=== PATIENT | male | born 1950 | race Caucasian/White ===

== ENCOUNTER 2016-11-22 10:01 | Outpatient (CLI) | payer MEDICARE, OTHER | END 2016-11-22 10:02 | disposition home or self-care (01) | DX: G47.10 Hypersomnia, unspecified (principal); E66.9 Obesity, unspecified; Z68.43 Body mass index [BMI] 50.0-59.9, adult; R09.89 Other specified symptoms and signs involving the circulatory and respiratory systems | CPT/HCPCS: 99203; G0463 ==

== ENCOUNTER 2016-12-11 19:35 | Outpatient (CLI) | payer MEDICARE, OTHER | END 2016-12-11 19:36 | disposition home or self-care (01) | DX: G47.33 Obstructive sleep apnea (adult) (pediatric) (principal); G47.61 Periodic limb movement disorder; Z68.43 Body mass index [BMI] 50.0-59.9, adult ==

== ENCOUNTER 2016-12-22 09:04 | Outpatient (CLI) | payer MEDICARE, OTHER | END 2016-12-22 09:05 | disposition home or self-care (01) | DX: G47.33 Obstructive sleep apnea (adult) (pediatric) (principal) | CPT/HCPCS: 99214; G0463 ==

== ENCOUNTER 2017-02-01 14:19 | Outpatient (CLI) | payer MEDICARE, OTHER | END 2017-02-01 14:20 | disposition home or self-care (01) | LOC: SC 14:19 | PROVIDERS: ATTEND Nurse Practitioner Family | DX: G47.33 Obstructive sleep apnea (adult) (pediatric) (principal) | CPT/HCPCS: 99214; G0463; 99212 ==

== ENCOUNTER 2017-05-04 10:13 | Outpatient (CLI) | payer MEDICARE, OTHER | END 2017-05-04 10:14 | disposition home or self-care (01) | LOC: SC 10:13 | PROVIDERS: ATTEND Nurse Practitioner Family | DX: G47.33 Obstructive sleep apnea (adult) (pediatric) (principal) | CPT/HCPCS: 99214; G0463; 99212 ==

== ENCOUNTER 2019-02-16 00:17 | Outpatient (CLI) | payer MEDICARE, OTHER | END 2019-02-16 00:18 | disposition critical access hospital (66) | LOC: EMS 00:17 | PROVIDERS: ATTEND Surgery | DX: K92.1 Melena (principal); R10.819 Abdominal tenderness, unspecified site | CPT/HCPCS: A0425; A0429 ==

== ENCOUNTER 2019-02-16 00:32 | Emergency (ER) | payer MEDICARE, OTHER ==
[2019-02-16 01:00] LABS: BASOPHILS % (AUTO) 0.6 %; EOSINOPHILS % (AUTO) 0.7 %; HGB - HEMOGLOBIN 12.7 g/dL (14.0-18.0); LYMPHOCYTES % (AUTO) 5.5 %; MEAN CORPUSCULAR HEMOGLOBIN 34.5 pg (27.0-31.0); MEAN CORPUSCULAR HGB CONC 35.7 g/dL (32.0-36.0); MEAN CORPUSCULAR VOLUME 96.7 fL (80.0-94.0); MONOCYTES % (AUTO) 4.6 %; NEUTROPHILS % (AUTO) 77.7 %; PLT - PLATELET COUNT 155 10^3/uL (130-450); RED BLOOD COUNT 3.68 10^6/uL (4.70-6.10); RED CELL DISTRIBUTION WIDTH 16.6 % (12.0-15.0); WHITE BLOOD COUNT 23.5 x10^3/uL (4.8-10.8)
[2019-02-16 01:03] LABS: ABNORMAL LYMPHS % (MANUAL) 0 %
[2019-02-16 01:28] LABS: BAND NEUTROPHILS % (MANUAL) 10 %; DIFFERENTIAL COMMENT MANUAL DIFFERENTIAL; EOSINOPHILS # (MANUAL) 0.5 10^3/uL (0-0.7); LYMPHOCYTES # (MANUAL) 0.7 10^3/uL (1.5-3.5); LYMPHOCYTES % (MANUAL) 3 %; MONOCYTES # (MANUAL) 0.7 10^3/uL (0.0-1.0); NEUTROPHILS # (MANUAL) 21.6 10^3/uL (1.5-6.6); NEUTROPHILS % (MANUAL) 82 %; PLATELET ESTIMATE, MANUAL NORMAL (130-450,000) (NORMAL); RBC MORPHOLOGY (MULTIPLE) NORMAL APPEARANCE (NORMAL)
[2019-02-16 01:29] LABS: ALBUMIN/GLOBULIN RATIO 0.5 (1.0-2.2)
[2019-02-16 01:30] LABS: ALBUMIN 2.3 g/dL (3.2-5.5); BILIRUBIN,TOTAL 15.3 mg/dL (0.2-1.0); CALCIUM 9.3 mg/dL (8.5-10.3); CREATININE 3.4 mg/dL (0.6-1.2); TOTAL PROTEIN 6.9 g/dL (6.7-8.2)
[2019-02-16] MEDS ORDERED: SODIUM CHLORIDE 0.9% 500 ML IV STA (02:21)
--- NOTE | 2019-02-16 02:21 | ED Physician Documentation ---
PD HPI GI BLEED - Stated complaint Stated Complaint: BLOOD IN STOOL - Chief complaint Chief Complaint: Abd Pain - History obtained from History obtained from: Patient - History of Present Illness Timing - onset: Today Timing - details: Abrupt onset, Intermittant Associated symptoms: BRBPR, Abdominal pain, Loss of appetite. No: Fever Improved by: Other (nothing) Worsened by: Other (no exacerbating factors) Similar symptoms before: Has not had sx before Recently seen: Not recently seen - Additional information Additional information: chief complaint is BRBPR. Patient had hard stool at noon and noted blood in toilet. He had 1-2 more such episodes in the afternoon. He has had abdominal cramping for several days and describes increasing generalized weakness over the past 2-3 days. Also has had dyspnea on exertion over past week, but since yesterday has also had dyspnea at rest. Review of Systems Constitutional: reports: Fatigue. denies: Fever, Chills, Sweats Eyes: reports: Reviewed and negative Ears: reports: Reviewed and negative Nose: reports: Reviewed and negative Throat: reports: Reviewed and negative Cardiac: reports: Reviewed and negative Respiratory: reports: Dyspnea. denies: Cough, Hemoptysis, Wheezing GI: reports: Abdominal Pain, Abdominal Swelling, Bloody / black stool. denies: Nausea, Vomiting, Constipation, Diarrhea : reports: Other ("haven't been urinating all day" (per patient)) Skin: reports: Reviewed and negative Musculoskeletal: reports: Extremity swelling Neurologic: reports: Generalized weakness. denies: Focal weakness, Numbness, Confused, Altered mental status, Headache PD PAST MEDICAL HISTORY - Past Medical History Past Medical History: Yes Cardiovascular: Hypertension, Coronary artery disease, Other Respiratory: Sleep apnea, CPAP use Neuro: None Endocrine/Autoimmune: None GI: Other : None HEENT: Chronic vision loss Musculoskeletal: None Other Past Medical History: Liver CA - Past Surgical History Past Surgical History: Yes Ortho: Hip replacement, Knee replacement Cardiovascular: Coronary stent - Present Medications Home Medications: Ambulatory Orders Medication Instructions Recorded Confirmed Aspirin [Jh Chewable Aspirin] 09/11/15 09/11/15 Atenolol [Tenormin] 09/11/15 09/11/15 Azithromycin [Zithromax] 250 mg PO DAILY #4 tablet 09/11/15 Benzonatate [Tessalon] 100 mg PO TID PRN #20 capsule 09/11/15 Furosemide 09/11/15 09/11/15 Harvoni 09/11/15 09/11/15 NIFEdipine [Procardia Xl] 60 mg PO DAILY 09/11/15 09/11/15 Telmisartan [Micardis] 80 mg PO DAILY 09/11/15 09/11/15 guaiFENesin/DEXTROMETHORPHAN 10 ml PO Q6H PRN #120 ml 09/11/15 [Robitussin Dm] - Allergies Allergies/Adverse Reactions: Allergies Allergy/AdvReac Type Severity Reaction Status Date / Time No Known Drug Allergies Allergy Verified 09/11/15 05:10 - Social History Does the pt smoke?: No Smoking Status: Never smoker Does the pt drink ETOH?: No Does the pt have substance abuse?: No - Immunizations Immunizations are current?: Yes - POLST Patient has POLST: No PD ED PE NORMAL - Vitals Vital signs reviewed: Yes - General General: Alert and oriented X 3, No acute distress, Well developed/nourished - HEENT HEENT: Other (tacky/pasty mucous membranes) - Neck Neck: No JVD - Cardiac Cardiac: RRR, No murmur - Respiratory Respiratory: No respiratory distress, Clear bilaterally - Abdomen Abdomen: Soft - Back Back: No CVA TTP - Neuro Neuro: Alert and oriented X 3, 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, No motor deficit, No sensory deficit, Normal speech Eye Opening: Spontaneous Motor: Obeys Commands Verbal: Oriented GCS Score: 15 PD ED PE EXPANDED - Eyes Eyes: Scleral icterus - Abdomen Abdomen: Distended, Tender to palpation (mild generalized tenderness without rebound or guarding) - Derm Derm: Jaundiced - Extremities Extremities: Pedal edema bilateral (brawny 3+ BLE pitting edema, hyperpigmentation bilateral pretibial surfaces) Results - Vitals Vitals: Vital Signs - 24 hr 02/16/19 02/16/19 02/16/19 00:36 00:40 02:40 Temperature 36.7 C Heart Rate 77 72 67 Respiratory 18 18 18 Rate Blood Pressure 140/94 H 140/94 H 117/86 H O2 Saturation 99 98 98 02/16/19 02/16/19 04:13 06:00 Temperature 36.7 C Heart Rate 74 66 Respiratory 15 17 Rate Blood Pressure 140/62 H 144/66 H O2 Saturation 97 99 Oxygen O2 Source Room air - Labs Labs: Laboratory Tests 02/16/19 02/16/19 02/16/19 00:56 00:56 03:10 WBC 23.5 H RBC 3.68 L Hgb 12.7 L Hct 35.6 L MCV 96.7 H MCH 34.5 H MCHC 35.7 RDW 16.6 H Plt Count 155 MPV 10.0 Neut # (Auto) Not Reportable Lymph # (Auto) Not Reportable [place] # (Auto) Not Reportable Eos # (Auto) Not Reportable Baso # (Auto) Not Reportable Absolute Nucleated RBC Not Reportable Total Counted 100 Band Neuts % (Manual) 10 Abnorm Lymph % (Manual) 0 Nucleated RBC % Not Reportable Neutrophils # (Manual) 21.6 H Lymphocytes # (Manual) 0.7 L Monocytes # (Manual) 0.7 Eosinophils # (Manual) 0.5 Basophils # (Manual) 0.0 Differential Comment MANUAL DIFFERENTIAL Platelet Estimate NORMAL (130-450,000) RBC Morph Micro Appear NORMAL APPEARANCE PT INR APTT Sodium 126 L Potassium 3.8 Chloride 94 L Carbon Dioxide 16 L Anion Gap 16.0 H BUN 111 H* Creatinine 3.4 H Estimated GFR (MDRD) 18 L Glucose 99 Lactic Acid Calcium 9.3 Total Bilirubin 15.3 H AST 97 H ALT 64 H Alkaline Phosphatase 404 H Ammonia 53.0 H B-Natriuretic Peptide Total Protein 6.9 Albumin 2.3 L Globulin 4.6 H Albumin/Globulin Ratio 0.5 L Lipase 40 Urine Color Urine Clarity Urine pH Ur Specific [place] Urine Protein Urine Glucose (UA) Urine Ketones Urine Occult Blood Urine Nitrite Urine Bilirubin Urine Urobilinogen Ur Leukocyte Esterase Urine RBC Urine WBC Ur Squamous Epith Cells Urine Bacteria Urine Casts Ur Microscopic Review Urine Culture Comments 02/16/19 02/16/19 02/16/19 03:10 03:10 06:50 WBC RBC Hgb Hct MCV MCH MCHC RDW Plt Count MPV Neut # (Auto) Lymph # (Auto) [place] # (Auto) Eos # (Auto) Baso # (Auto) Absolute Nucleated RBC Total Counted Band Neuts % (Manual) Abnorm Lymph % (Manual) Nucleated RBC % Neutrophils # (Manual) Lymphocytes # (Manual) Monocytes # (Manual) Eosinophils # (Manual) Basophils # (Manual) Differential Comment Platelet Estimate RBC Morph Micro Appear PT 18.6 H INR 1.7 H APTT 33.8 H Sodium Potassium Chloride Carbon Dioxide Anion Gap BUN Creatinine Estimated GFR (MDRD) Glucose Lactic Acid Calcium Total Bilirubin AST ALT Alkaline Phosphatase Ammonia B-Natriuretic Peptide 128 H Total Protein Albumin Globulin Albumin/Globulin Ratio Lipase Urine Color DARK YELLOW Urine Clarity CLEAR Urine pH 5.0 Ur Specific [place] 1.010 Urine Protein NEGATIVE Urine Glucose (UA) NEGATIVE Urine Ketones NEGATIVE Urine Occult Blood MODERATE H Urine Nitrite NEGATIVE Urine Bilirubin MODERATE H Urine Urobilinogen 0.2 (NORMAL) Ur Leukocyte Esterase TRACE H Urine RBC 6-10 H Urine WBC 0-3 Ur Squamous Epith Cells FEW Squamous Urine Bacteria Rare Urine Casts 3-5 Hyaline Casts Ur Microscopic Review INDICATED Urine Culture Comments INDICATED 02/16/19 07:05 WBC RBC Hgb Hct MCV MCH MCHC RDW Plt Count MPV Neut # (Auto) Lymph # (Auto) [place] # (Auto) Eos # (Auto) Baso # (Auto) Absolute Nucleated RBC Total Counted Band Neuts % (Manual) Abnorm Lymph % (Manual) Nucleated RBC % Neutrophils # (Manual) Lymphocytes # (Manual) Monocytes # (Manual) Eosinophils # (Manual) Basophils # (Manual) Differential Comment Platelet Estimate RBC Morph Micro Appear PT INR APTT Sodium Potassium Chloride Carbon Dioxide Anion Gap BUN Creatinine Estimated GFR (MDRD) Glucose Lactic Acid 1.5 Calcium Total Bilirubin AST ALT Alkaline Phosphatase Ammonia B-Natriuretic Peptide Total Protein Albumin Globulin Albumin/Globulin Ratio Lipase Urine Color Urine Clarity Urine pH Ur Specific [place] Urine Protein Urine Glucose (UA) Urine Ketones Urine Occult Blood Urine Nitrite Urine Bilirubin Urine Urobilinogen Ur Leukocyte Esterase Urine RBC Urine WBC Ur Squamous Epith Cells Urine Bacteria Urine Casts Ur Microscopic Review Urine Culture Comments - Rads (name of study) chest xray Radiology: Prelim report reviewed, See rad report PD MEDICAL DECISION MAKING - ED course Complexity details: reviewed old records (records from [facility] faxed to me and reviewed), reviewed results, re-evaluated patient, considered differential, d/w patient ED course: h/o HCV cirrhosis and hepatocellular carcinoma. he is jaundiced and icteric with bilirubin of 15. significant leukocytosis, uremia (BUN 111), creatinine 3.4. Most of these lab results are significantly worse than those noted on faxed reports from 01/10/19 (normal WBC and bilirubin low 2s at that time). No beds available at [facility] or [facility]. D/W Dr. Diallo at [facility], requests lactic acid level and UA before transfer (as patient should have antibiotics started prior to transfer if the results are s/o infection). After 6 hours in ED and 1 liter NS bolus, still no urine output and thus young catheter inserted; only 30cc return. Normal lactate and UA does not suggest infection. I then D/W Dr. Sin at [facility], accepts transfer but recommends blood cultures and rocephin for possible SBP. Prior to transfer, patient had significant improvement in UO with further IV fluids. Departure - Departure Disposition: 02 Transfer Acute Care Hosp Clinical Impression: Hepatorenal syndrome Condition: Stable
--- NOTE | 2019-02-16 03:05 | XRAY Report ---
Reason: dyspnea Procedure Date: 02/16/2019 Accession Number: [id number] / [id number] Procedure: XR - Chest 2 View X-Ray CPT Code: 94261 FULL RESULT: EXAM: CHEST RADIOGRAPHY EXAM DATE: 02/16/2019 02:48 AM. CLINICAL HISTORY: Dyspnea. COMPARISON: CHEST 2 VIEW PA/LAT 09/11/2015 5:37 AM. TECHNIQUE: 2 views. FINDINGS: Lungs/Pleura: No focal opacities evident. No pleural effusion. No pneumothorax. Normal volumes. Mediastinum: Stable postoperative changes of median sternotomy. No cardiomegaly. Other: None. IMPRESSION: No evidence of acute cardiopulmonary disease. RADIA
[2019-02-16 03:36] LABS: INR 1.7 (0.8-1.2); PT - PROTHROMBIN TIME 18.6 secs (9.9-12.6)
[2019-02-16 03:53] LABS: PARTIAL THROMBOPLASTIN TIME 33.8 secs (24.9-33.3)
[2019-02-16] MEDS ORDERED: SODIUM CHLORIDE 0.9% 1,000 ML IV STA (06:33)
[2019-02-16 07:12] LABS: GLUCOSE, URINE (UA) NEGATIVE (NEGATIVE); KETONES,URINE (UA) NEGATIVE (NEGATIVE); LEUKOCYTE ESTERASE, URINE TRACE (NEGATIVE); NITRITE,URINE NEGATIVE (NEGATIVE); OCCULT BLOOD,URINE MODERATE (NEGATIVE); PROTEIN,URINE NEGATIVE (NEGATIVE); UROBILINOGEN,URINE 0.2 (NORMAL) E.U./dL (NORMAL)
[2019-02-16 07:16] LABS: BILIRUBIN,URINE MODERATE (NEGATIVE); CLARITY,URINE CLEAR (CLEAR); ICTOTEST,URINE POSITIVE
[2019-02-16 07:23] LABS: BACTERIA,URINE Rare /HPF (None Seen); SQUAMOUS EPITHELIAL CELL,UR FEW Squamous (<= Few)
[2019-02-16 07:24] LABS: CASTS, URINE 3-5 Hyaline Casts /LPF
[2019-02-16] MEDS ORDERED: cefTRIAXone 1 GM in SODIUM CHLORIDE 0.9% MINIBAG 100 ML IV STA (08:26)
[2019-02-16 10:59] VITALS: BP 132/70
[2019-02-16] MEDS ORDERED: HYDROmorphone 1 MG/ML CARPUJECT IVP STA (11:38)
== END 2019-02-16 11:59 | disposition short-term general hospital (02) ==
LOC: EDUNIT# → ED 00:32
DX: K76.7 Hepatorenal syndrome (principal); R33.9 Retention of urine, unspecified; K74.69 Other cirrhosis of liver; Z85.05 Personal history of malignant neoplasm of liver; I78.1 Nevus, non-neoplastic; I10 Essential (primary) hypertension; I25.10 Atherosclerotic heart disease of native coronary artery without angina pectoris; Z95.5 Presence of coronary angioplasty implant and graft; Z79.82 Long term (current) use of aspirin
CPT/HCPCS: 36415; 51702; 51798; 71046; 80053; 81001; 81003; 82140; 83605; 83690; 83880; 85025; 85610; 85730; 87040; 87086; 96361; 96365; 99285

== ENCOUNTER 2019-03-13 09:34 | Outpatient (CLI) | payer MEDICARE, OTHER | END 2019-03-13 09:35 | disposition critical access hospital (66) | LOC: EMS 09:34 | PROVIDERS: ATTEND Surgery | DX: R06.00 Dyspnea, unspecified (principal) | CPT/HCPCS: A0425; A0429 ==

== ENCOUNTER 2019-03-13 09:50 | Emergency (ER) | payer MEDICARE, OTHER ==
--- NOTE | 2019-03-13 09:57 | ED Physician Documentation ---
History of Present Illness - Stated complaint Stated Complaint: SOA - History obtained from History obtained from: Patient, EMS - History of Present Illness Timing: How many days ago (several days) Pain level max: 0 Pain level now: 0 - Additonal information Additional information: states history of CHF and liver disease. Stopped his lasix recently and was supposed to restart today. He was on his way to his doctor appointment today and his sister called 911. No cough, no congestion. nothing makes this better or worse. Had SBP recently. on cipro and rifaxamin. Patient was recently admitted to [facility]. His doctor for his liver is at the [facility], Dr. Mcfadden. He has been off Lasix since his discharge from [facility]. He feels more swollen than usual. Review of Systems Ten Systems: 10 systems reviewed and negative Constitutional: denies: Fever, Chills Ears: denies: Ear pain, Drainage/discharge Nose: denies: Rhinorrhea / runny nose, Congestion Skin: denies: Rash Musculoskeletal: denies: Neck pain, Back pain Neurologic: denies: Headache PD PAST MEDICAL HISTORY - Past Medical History Cardiovascular: Hypertension, Coronary artery disease, Other Respiratory: Sleep apnea, CPAP use Neuro: None Endocrine/Autoimmune: None GI: Other : None HEENT: Chronic vision loss Musculoskeletal: None - Past Surgical History Past Surgical History: Yes Ortho: Hip replacement, Knee replacement Cardiovascular: Coronary stent - Present Medications Home Medications: Ambulatory Orders Medication Instructions Recorded Confirmed Aspirin [Jh Chewable Aspirin] 09/11/15 09/11/15 Atenolol [Tenormin] 09/11/15 09/11/15 Azithromycin [Zithromax] 250 mg PO DAILY #4 tablet 09/11/15 Benzonatate [Tessalon] 100 mg PO TID PRN #20 capsule 09/11/15 Furosemide 09/11/15 09/11/15 Harvoni 09/11/15 09/11/15 NIFEdipine [Procardia Xl] 60 mg PO DAILY 09/11/15 09/11/15 Telmisartan [Micardis] 80 mg PO DAILY 09/11/15 09/11/15 guaiFENesin/DEXTROMETHORPHAN 10 ml PO Q6H PRN #120 ml 09/11/15 [Robitussin Dm] - Allergies Allergies/Adverse Reactions: Allergies Allergy/AdvReac Type Severity Reaction Status Date / Time No Known Drug Allergies Allergy Verified 09/11/15 05:10 - Social History Does the pt smoke?: No Smoking Status: Never smoker Does the pt drink ETOH?: No Does the pt have substance abuse?: No - Immunizations Immunizations are current?: Yes - POLST Patient has POLST: No PD ED PE NORMAL - Vitals Vital signs reviewed: Yes - General General: Alert and oriented X 3, No acute distress, Well developed/nourished, Other (jaundiced) - HEENT HEENT: Moist mucous membranes, Other (scleral icterus) - Neck Neck: Supple, no meningeal sign - Cardiac Cardiac: RRR, Strong equal pulses - Respiratory Respiratory: No respiratory distress, Clear bilaterally - Abdomen Abdomen: Soft, Non tender, Other (moderate distention) - Back Back: No spinal TTP - Derm Derm: Warm and dry - Extremities Extremities: Other (3+ pitting edema) - Neuro Neuro: Alert and oriented X 3 - Psych Psych: Normal mood, Normal affect Results - Vitals Vitals: Vital Signs - 24 hr 03/13/19 03/13/19 03/13/19 09:58 10:27 12:21 Temperature 36.8 C Heart Rate 67 63 55 L Respiratory 22 18 20 Rate Blood Pressure 121/46 L 121/45 L 131/51 H O2 Saturation 100 100 99 03/13/19 03/13/19 12:39 13:01 Temperature Heart Rate 65 69 Respiratory 20 20 Rate Blood Pressure 125/41 L O2 Saturation 99 Oxygen O2 Source Room air - EKG (time done) 1004 Rate: Rate (enter#) (65) Rhythm: Atrial fibrillation [place]: Normal Intervals: Normal [place] QRS: Normal Ischemia: Normal ST segments - Labs Labs: Laboratory Tests 03/13/19 03/13/19 03/13/19 10:22 10:22 10:22 WBC 8.8 RBC 2.54 L Hgb 9.0 L Hct 25.2 L MCV 99.2 H MCH 35.4 H MCHC 35.7 RDW 16.5 H Plt Count 223 MPV 10.3 Neut # (Auto) 6.6 Lymph # (Auto) 0.6 L [place] # (Auto) 1.1 H Eos # (Auto) 0.3 Baso # (Auto) 0.0 Absolute Nucleated RBC 0.00 Nucleated RBC % 0.0 Sodium 119 L* Potassium 6.6 H* Chloride 91 L Carbon Dioxide 13 L Anion Gap 15.0 H BUN 98 H* Creatinine 5.2 H Estimated GFR (MDRD) 11 L Glucose 94 Calcium 9.2 Total Bilirubin 19.0 H AST 112 H ALT 37 Alkaline Phosphatase 167 H B-Natriuretic Peptide 203 H Total Protein 7.0 Albumin 3.7 Globulin 3.3 Albumin/Globulin Ratio 1.1 Lipase 374 H Urine Color Urine Clarity Urine pH Ur Specific [place] Urine Protein Urine Glucose (UA) Urine Ketones Urine Occult Blood Urine Nitrite Urine Bilirubin Urine Urobilinogen Ur Leukocyte Esterase Urine RBC Urine WBC Ur Squamous Epith Cells Urine Crystals Urine Bacteria Urine Casts Ur Microscopic Review Urine Culture Comments 03/13/19 11:18 WBC RBC Hgb Hct MCV MCH MCHC RDW Plt Count MPV Neut # (Auto) Lymph # (Auto) [place] # (Auto) Eos # (Auto) Baso # (Auto) Absolute Nucleated RBC Nucleated RBC % Sodium Potassium Chloride Carbon Dioxide Anion Gap BUN Creatinine Estimated GFR (MDRD) Glucose Calcium Total Bilirubin AST ALT Alkaline Phosphatase B-Natriuretic Peptide Total Protein Albumin Globulin Albumin/Globulin Ratio Lipase Urine Color YELLOW Urine Clarity HAZY Urine pH 5.0 Ur Specific [place] 1.020 Urine Protein 100 H Urine Glucose (UA) NEGATIVE Urine Ketones TRACE Urine Occult Blood SMALL H Urine Nitrite NEGATIVE Urine Bilirubin MODERATE H Urine Urobilinogen 0.2 (NORMAL) Ur Leukocyte Esterase TRACE H Urine RBC 0-5 Urine WBC 11-25 H Ur Squamous Epith Cells FEW Squamous Urine Crystals 3-5 Calcium Oxalate Urine Bacteria Few Urine Casts 0-2 Hyaline Casts Ur Microscopic Review INDICATED Urine Culture Comments INDICATED - Rads (name of study) cxr Radiology: Prelim report reviewed, EMP read contemporaneously, See rad report (Poor inspiration with bibasilar atelectasis. 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 He is found to have acute renal failure, hyperkalemia, hyponatremia and a UTI. Also has a rising lipase and bilirubin. Given Rocephin. No altered mental status. Given IV fluids gently. Given insulin, glucose, albuterol. Patient is well-appearing, nontoxic. Recently discharged from [facility]. I discussed the case with Dr. Borrero at 1310 and she graciously accepts in transfer. COBRA forms filled out. This document was made in part using voice recognition software. While efforts are made to proofread this document, sound alike and grammatical errors may occur. Departure - Departure Disposition: 02 Transfer Acute Care Hosp Clinical Impression: Hyperkalemia, Hyponatremia, Hyperbilirubinemia Renal failure Qualifiers: Renal failure chronicity: acute on chronic Acute renal failure type: unspecified Chronic kidney disease stage: unspecified stage Qualified Code(s): N17.9 - Acute kidney failure, unspecified Pancreatitis Qualifiers: Chronicity: acute Pancreatitis type: unspecified pancreatitis type Acute pancreatitis complication: unspecified Qualified Code(s): K85.90 - Acute pancreatitis without necrosis or infection, unspecified UTI (urinary tract infection) Qualifiers: Urinary tract infection type: acute cystitis Hematuria presence: without hematuria Qualified Code(s): N30.00 - Acute cystitis without hematuria Condition: Stable
[2019-03-13] MEDS ORDERED: FUROSEMIDE 40 MG/4 ML VIAL IVP STA (10:26)
[2019-03-13 10:34] LABS: BASOPHILS % (AUTO) 0.5 %; EOSINOPHILS # (AUTO) 0.3 10^3/uL (0.0-0.7); EOSINOPHILS % (AUTO) 3.3 %; LYMPHOCYTES # (AUTO) 0.6 10^3/uL (1.5-3.5); LYMPHOCYTES % (AUTO) 6.4 %; MEAN CORPUSCULAR HEMOGLOBIN 35.4 pg (27.0-31.0); MEAN CORPUSCULAR HGB CONC 35.7 g/dL (32.0-36.0); MEAN CORPUSCULAR VOLUME 99.2 fL (80.0-94.0); MEAN PLATELET VOLUME 10.3 fL (7.4-11.4); MONOCYTES # (AUTO) 1.1 10^3/uL (0.0-1.0); MONOCYTES % (AUTO) 12.9 %; NEUTROPHILS # (AUTO) 6.6 10^3/uL (1.5-6.6); NEUTROPHILS % (AUTO) 74.6 %; PLT - PLATELET COUNT 223 10^3/uL (130-450); RED BLOOD COUNT 2.54 10^6/uL (4.70-6.10); RED CELL DISTRIBUTION WIDTH 16.5 % (12.0-15.0); WHITE BLOOD COUNT 8.8 x10^3/uL (4.8-10.8)
--- NOTE | 2019-03-13 10:40 | XRAY Report ---
Reason: chest pain Procedure Date: 03/13/2019 Accession Number: [id number] / [id number] Procedure: XR - Chest 1 View X-Ray CPT Code: 26109 FULL RESULT: EXAM: CHEST RADIOGRAPHY EXAM DATE: 03/13/2019 10:14 AM. CLINICAL HISTORY: Chest pain. COMPARISON: CHEST 2 VIEW 02/16/2019 2:27 AM. TECHNIQUE: 1 view. FINDINGS: Lungs/Pleura: Diminished lung volumes with hazy right mid to lower lung and left basilar opacities. Mediastinum: Within exam limitations, the cardiomediastinal contour is normal. Other: Prior sternotomy. IMPRESSION: 1. Poor inspiration with bibasilar atelectasis. Cannot exclude right basilar airspace disease. RADIA
[2019-03-13 11:23] LABS: GLUCOSE, URINE (UA) NEGATIVE (NEGATIVE); KETONES,URINE (UA) TRACE mg/dL (NEGATIVE); LEUKOCYTE ESTERASE, URINE TRACE (NEGATIVE); NITRITE,URINE NEGATIVE (NEGATIVE); OCCULT BLOOD,URINE SMALL (NEGATIVE); PROTEIN,URINE 100 mg/dL (NEGATIVE); UROBILINOGEN,URINE 0.2 (NORMAL) E.U./dL (NORMAL)
[2019-03-13 11:36] LABS: BILIRUBIN,URINE MODERATE (NEGATIVE); CLARITY,URINE HAZY (CLEAR); ICTOTEST,URINE POSITIVE
[2019-03-13 11:42] LABS: ALBUMIN 3.7 g/dL (3.2-5.5); ALBUMIN/GLOBULIN RATIO 1.1 (1.0-2.2); CALCIUM 9.2 mg/dL (8.5-10.3)
[2019-03-13 11:43] LABS: CREATININE 5.2 mg/dL (0.6-1.2)
[2019-03-13] MEDS ORDERED: DEXTROSE 50% ABBOJECT 25 GM/50 ML SYRINGE IVP STA (11:45)
[2019-03-13] MEDS ORDERED: INSULIN REGULAR HUMAN 100 UNIT/1 ML 10 ML MDV SUBQ STA (11:45)
[2019-03-13] MEDS ORDERED: SODIUM CHLORIDE 0.9% 1,000 ML IV ONE (11:45)
[2019-03-13 12:02] LABS: BACTERIA,URINE Few /HPF (None Seen); CASTS, URINE 0-2 Hyaline Casts /LPF; CRYSTALS,URINE 3-5 Calcium Oxalate /LPF; RBC,URINE 0-5 /HPF (0-5); SQUAMOUS EPITHELIAL CELL,UR FEW Squamous (<= Few)
[2019-03-13] MEDS ORDERED: ALBUTEROL NEB 2.5 MG/3 ML INH STA ×2 (12:03→14:06)
[2019-03-13] MEDS ORDERED: cefTRIAXone 1 GM VIAL IVP STA (12:22)
[2019-03-13] MEDS ORDERED: SODIUM CHLORIDE 0.9% 500 ML IV ONE ×2 (12:25→16:40)
[2019-03-13] MEDS ORDERED: DEXTROSE 25% ABBOJECT 2.5 GM/10 ML SYRINGE IVP STA (12:47)
[2019-03-13] MEDS ORDERED: DEXTROSE 10% 250 ML IV STA (12:55)
[2019-03-13 15:31] LABS: CALCIUM 9.1 mg/dL (8.5-10.3)
[2019-03-13 15:34] LABS: CREATININE 5.2 mg/dL (0.6-1.2)
[2019-03-13] MEDS ORDERED: MORPHINE 2 MG/ML CARPUJECT IVP STA (16:37)
[2019-03-13 16:43] VITALS: BP 114/55
== END 2019-03-13 17:13 | disposition short-term general hospital (02) ==
LOC: EDUNIT# → ED 09:50
DX: E87.5 Hyperkalemia (principal); E87.1 Hypo-osmolality and hyponatremia; E80.6 Other disorders of bilirubin metabolism; N17.9 Acute kidney failure, unspecified; K85.90 Acute pancreatitis without necrosis or infection, unspecified; N30.00 Acute cystitis without hematuria; I10 Essential (primary) hypertension
CPT/HCPCS: 36415; 71045; 80048; 80053; 81001; 83690; 83880; 85025; 87086; 93005; 94640; 96361; 96374; 96375; 99285; J1815; 81003